=== PATIENT | male | born 1960 | race Caucasian/White ===

== ENCOUNTER 2022-07-24 03:04 | Day surgery (SDC) | payer BC, SELFPAY ==
[2022-07-14 10:49] VITALS: BMI 32.1
[2022-07-24 07:41] VITALS: BP 114/93; PULSE 85; RESP 20; TEMP 36.4; O2SAT 100
[2022-07-24] MEDS: LACTATED RINGERS 1,000 ML 150 ML IV CONT (07:47)
--- NOTE | 2022-07-24 08:15 | WPDANESEPPF ---
Anes - Initial Pre Proc Eval Procedure: Operation Date: 07/24/22 08:45 Proposed Procedures p Screening Colonoscopy - Timothy Mcclellan MD Date/Time: 07/24/22 08:15 Surgeon: Timothy Mcclellan MD Pre Op Diagnosis: Neoplasm Screening, Hx of Colon Polyps Patient Data Age: 62 Gender: M Height: 1.88 m Weight: 110.8 kg Last Vital Signs Temp 36.4 C 07/24/22 07:41 Pulse 85 07/24/22 07:41 Resp 20 07/24/22 07:41 BP 114/93 H 07/24/22 07:41 Pulse Ox 100 07/24/22 07:41 O2 Del Method Room Air 07/24/22 07:41 Allergies Allergy/AdvReac Type Severity Reaction Status Date / Time No Known Allergies Allergy Verified 07/24/22 07:40 Home Medications Medication Instructions Recorded Confirmed Type metoprolol succinate 25 mg 25 mg PO DAILY #90 tabs 02/03/22 07/24/22 Rx tablet,extended release 24 hr benazepril 10 mg tablet 10 mg PO DAILY #30 tabs 07/14/22 07/24/22 Rx hydrochlorothiazide 25 mg tablet 25 mg PO DAILY 07/14/22 07/24/22 History omeprazole 40 mg capsule,delayed 40 mg PO HS PRN REFLUX 07/14/22 07/24/22 History release Patient hx anesthesia problems: none Family hx anesthesia problems: none Results Review: All pre-operative results and documents have been reviewed as part of the pre-operative evaluation. [facility] Past Medical History Medical History (Updated 03/23/22 @ 16:32 by Benito Pierce MD) BMI 31.0-31.9,adult BMI 33.0-33.9,adult Colon polyp Dyspepsia Elevated lipids Hypertension Knee osteoarthritis Surgical History Surgical History H/O shoulder surgery History of colon surgery Family History Family History Other Malignant neoplasm of prostate Social History Social History Smoking status: Never smoker Alcohol intake: current Drinks per week: 12 Alcohol use details: BEERS Substance use: never Substance use type: does not use Living arrangements: with family Spiritual care concerns: No Anes - Eval Final PreProcedure Day of Procedure 07/24/22 08:15 Patient weight: obese Heart: regular rate and rhythm Lungs: clear to auscultation and normal air movement Airway: Mallampati scale class II Neurological: alert and oriented Last oral intake: >/= 8 hours ASA classification: III Emergent: no Anesthetic plan: proceed Anesthesia type and monitoring: general GIVS Results Review: All pre-operative results and documents have been reviewed as part of the pre-operative evaluation. Informed Consent: The patient's anesthetic plan and its attendant risks and benefits were discussed with the patient/family/POA. Questions were solicited and answers provided to the satisfaction of the patient/family/POA.
--- NOTE | 2022-07-24 08:29 | PM.HPGS ---
History of Present Illness History of Present Illness Consent: Risks, benefits, and alternatives have been discussed and questions answered. Patient agrees to proceed with procedure. Chief complaint: Neoplasm Screening, Hx of Colon Polyps Narrative: Saul Liu is a 62 year old male with last colonoscopy about 8 years ago, had partial colectomy due to benign polyp about 30 years ago Review of Systems Constitutional: Constitutional: Denies headache(s) and Denies weakness Eyes: Eyes: Denies blurry vision ENT: Reports Normal hearing present, Denies headache(s) and Denies neck pain Cardiovascular: Cardiovascular: Denies chest pain and Denies dyspnea Respiratory: Respiratory: Denies dyspnea Gastrointestinal: Gastrointestinal: Reports no additional gastrointestinal complaints Genitourinary: Genitourinary: Denies dysuria Musculoskeletal: Musculoskeletal: Denies neck pain Integumentary/Breasts: Skin/Breast: Denies dry skin Neurologic: Reports Normal hearing present, Denies headache(s) and Denies weakness Psychiatric: Psychiatric: Denies anxiety Endocrine: Endocrine: Denies change in body appearance Hematologic/Lymphatic: Hematologic/Lymphatic: Denies easy bleeding Allergic/Immunologic: Allergic/Immunologic: Denies urticaria PMFSH Past Medical History Medical History (Updated 03/23/22 @ 16:32 by Benito Pierce MD) BMI 31.0-31.9,adult BMI 33.0-33.9,adult Colon polyp Dyspepsia Elevated lipids Hypertension Knee osteoarthritis Surgical History Surgical History H/O shoulder surgery History of colon surgery Family History Family History Other Malignant neoplasm of prostate Social History Social History Smoking status: Never smoker Alcohol intake: current Drinks per week: 12 Alcohol use details: BEERS Substance use: never Substance use type: does not use Living arrangements: with family Spiritual care concerns: No Meds Home Medications and Allergies Home Medications Medication Instructions Recorded Confirmed Type metoprolol succinate 25 mg 25 mg PO DAILY #90 tabs 02/03/22 07/24/22 Rx tablet,extended release 24 hr benazepril 10 mg tablet 10 mg PO DAILY #30 tabs 07/14/22 07/24/22 Rx hydrochlorothiazide 25 mg tablet 25 mg PO DAILY 07/14/22 07/24/22 History omeprazole 40 mg capsule,delayed 40 mg PO HS PRN REFLUX 07/14/22 07/24/22 History release Allergies Allergy/AdvReac Type Severity Reaction Status Date / Time No Known Allergies Allergy Verified 07/24/22 07:40 Vital Signs Vital Signs - 24 hr 07/24/22 07:41 Temperature 97.6 F Pulse Rate 85 Respiratory Rate 20 Blood Pressure 114/93 H Pulse Oximetry 100 Oxygen Delivery Room Air Exam Const: General: comfortable and no acute distress HENMT: Face/Nose/Sinus: Normal nares present Eyes: General: appearance normal, both eyes and all related structures Neck: Neck: no JVD Resp: Auscultation: clear to auscultation bilaterally Cardio: Rate: regular rate Rhythm: regular rhythm GI: Inspection: non-distended GI Palp: Yes Soft to palpation Skin: General skin exam: normal color Neuro: General: gait normal Speech: normal speech Extrem: General: normal to inspection Psych: Mental Status: mental status grossly normal Assessment and Plan Assessment and plan (1) Colon polyp: Qualifiers: Colon polyp type: unspecified Colon location: unspecified part of colon Qualified Code(s): K63.5 - Polyp of colon Code(s): K63.5 - Polyp of colon Status: Acute Assessment and Plan: colonoscopy
[2022-07-24 08:54] VITALS: BP 117/62; PULSE 70; RESP 18; O2SAT 97
[2022-07-24 09:04] VITALS: BP 136/78; PULSE 67; RESP 18; O2SAT 99
[2022-07-24 09:14] VITALS: BP 121/83; PULSE 70; RESP 18; O2SAT 100
== END 2022-07-24 09:18 | disposition home or self-care (01) ==
PROVIDERS: PCP Family Medicine; Visit Provider Internal Medicine Gastroenterology
PROC: 0DJD8ZZ Inspection of Lower Intestinal Tract, Via Natural or Artificial Opening Endoscopic (ICD-10-PCS; CPT 45378; principal; 2022-07-24 08:45)
DX: Z12.11 Encounter for screening for malignant neoplasm of colon (principal); D12.0 Benign neoplasm of cecum; K57.30 Diverticulosis of large intestine without perforation or abscess without bleeding; K64.8 Other hemorrhoids; I10 Essential (primary) hypertension; E66.9 Obesity, unspecified; Z68.31 Body mass index [BMI] 31.0-31.9, adult; Z90.49 Acquired absence of other specified parts of digestive tract
CPT/HCPCS: 45380; 88305; J2001; J2704; J7120

== ENCOUNTER 2023-05-25 09:15 | Outpatient (RCR) | payer BC, MEDICARE, SELFPAY ==
--- NOTE | 2023-04-26 16:21 | OPREHPOC ---
Outpatient Therapy Plan of Care This is a Multidisciplinary Plan of Care that may contain components documented by all disciplines (PT, OT, and ST.) PT Problem 1 PT Problem #1 Knowledge Deficit PT Goal 1 Goal 1* indep with HEP PT Problem 2 PT Problem #2 Pain PT Goal 1 Goal 1* pt report pain 5/10 at worst 2* pt report walking/standing tolerance of 15 minutes PT Problem 3 PT Problem #3 Impaired Strength PT Goal 1 Goal 1* single leg standing L x 10 seconds 2* standing bilateral PF x 20 reps with clearing heel ~ 1& 1/2 from floor
--- NOTE | 2023-04-26 16:22 | PTOPEVAL1 ---
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 increase pain: walk/stand 5-10 minutes decrease pain: sit down, no using heat or ice-- instruct on PRN use sometimes knee swells; Assessment PT Clinical Summary Flaquito has the diagnosis of L patella femoral pain. His medical history includes: back pain, bilateral knee arthritis, L ankle fracture- nonsurgical, L knee bakers' cyst, R foot pain. Pain is increased with standing and walking 5 minutes. 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 With the evaluation, he has good ROM and strength of his L hip, knee and ankle, without pain during active motions; supine strength is good, standing ankle strength and single leg standing is decreased; standing posture is poor with L ankle inversion, has lateral tracking and positioning of his patella. Discussed with pt that he may need to see an ortho dr for his L ankle and knee. Skilled PT services are indicated for modalities to decrease pain, therapeutic exercises to increase ankle and knee strength and positioning, with education for home ex
--- NOTE | 2023-05-25 09:48 | PTOPDC ---
Assessment and note entered by Angelica Clarke, PT Discharge Information Assessment Status Discharge Diagnosis L patella femoral pain Onset December 2022 Subjective Information knee is better, less pain; knee is stronger; is able to be up on his feet about 1 & 1/2 hours then more pain;L ankle gives him trouble; is ready to be finished with therapy; Reported Pain Level Pain Score Self Report Additional Pain Score Comments pain range of 0-1/10 in past week; increase with mowing his yard, basement stairs; decrease pain with stim, have been doing the exercises at home Assessment PT Clinical Summary Flaquito has received 5 PT sessions. Compared to the initial evaluation: pain at worst has decreased from 8 to 2/10; standing/walking time reported increased from 5 to 90 min; increase strength with single leg standing and bilateral standing PF; education for HEP and positioning of knee has been completed. Electrical stim has decreased his pain--discussed home unit for pain control. The goals were achieved, except single leg standing time. He continues to have L ankle pain, which limits his mobility and L LE standing/activity tolerance. Discharge from PT services. He is to continue with his HEP. Plan of Care PT Services Indicated No
== END 2023-05-25 10:46 | disposition home or self-care (01) ==
LOC: ANHPT 09:15
PROVIDERS: PCP Family Medicine; Visit Provider Family Medicine
DX: M22.2X2 Patellofemoral disorders, left knee (principal)
CPT/HCPCS: 97014; 97110; 97112; 97161; 97530; G0283

== ENCOUNTER 2023-12-21 18:51 | Emergency (ER) | payer BC, SELFPAY ==
--- NOTE | 2023-12-21 18:56 | ED.WOUNDLAC ---
HPI - Wound/Laceration General Chief Complaint: Wound/Laceration Stated Complaint: cut index finger left hand Time Seen by Provider: 12/21/23 18:55 Source: patient Mode of arrival: ambulatory Limitations: no limitations History of Present Illness HPI narrative: Saul is a 63-year-old male patient presenting to the clinic today with complaints of a cut to his left index finger that occurred just prior to arrival. Tetanus shot is unknown. Bleeding is controlled. States he cut it when opening a can of food. Related Data Allergies Allergy/AdvReac Type Severity Reaction Status Date / Time No Known Allergies Allergy Verified 10/11/23 16:12 Review of Systems Review of Systems: Pertinent positives per HPI. Patient denies any fever, chills, rash, headache, visual changes, dizziness, cough, runny nose, sore throat, shortness of breath, chest pain, palpitations, nausea, vomiting, diarrhea, constipation, abdominal pain, or any urinary issues. [facility] Past Medical History Medical History Adult BMI 32.0-32.9 kg/sq m BMI 31.0-31.9,adult BMI 33.0-33.9,adult Colon polyp Dyspepsia Elevated lipids Hypertension Knee osteoarthritis Osteoarthritis Patellofemoral syndrome, left Surgical History Surgical History H/O shoulder surgery History of colon surgery Family History Family History Father Malignant neoplasm of prostate Mother No problems noted. 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 There is no relevant family history pertinent to the patient complaint. Exam Narrative: General: Well-developed, well nourished, in no apparent distress Head: Normocephalic, atraumatic. Cardio: Regular rate and rhythm, s1 and s2 normal, no murmur appreciated. Resp: Clear to auscultation bilaterally, no rhonchi, rales, wheezing or rubs. Integumentary: [place], warm, and dry, 2.5 cm laceration to the medial aspect of the left index finger. Course Course Emergency Course: Portions of this record may have been created with voice recognition software. Level of Care: Express Care Visit Vital Signs Vital signs: Vital Signs Temperature 36.7 C 12/21/23 18:57 Pulse Rate 76 12/21/23 18:57 Respiratory Rate 16 12/21/23 18:57 Blood Pressure 138/83 12/21/23 18:57 Pulse Oximetry 96 12/21/23 18:57 Oxygen Delivery Room Air 12/21/23 18:57 Temperature 36.7 C 12/21/23 18:57 Pulse Rate 76 12/21/23 18:57 Respiratory Rate 16 12/21/23 18:57 Blood Pressure 138/83 12/21/23 18:57 Pulse Oximetry 96 12/21/23 18:57 Oxygen Delivery Room Air 12/21/23 18:57 Vital signs reviewed Procedures Laceration Laceration 1: Date: 12/21/23 Site: hand (Index finger left hand) Side (If applicable): left Description: linear Depth: simple, single layer Local Anesthetic: lidocaine 1%
[2023-12-21 18:57] VITALS: BP 138/83; PULSE 76; RESP 16; TEMP 36.7; O2SAT 96
[2023-12-21] MEDS: TETANUS,DIPHTHERIA,AC PERTUSSIS ADULT (0.5 ML) BOOSTRIX IM (19:08)
[2023-12-21] MEDS: LIDOCAINE HCL 1% LOCAL INJ 2 ML AMPUL 4 ML INFILTRATE (19:08)
== END 2023-12-21 19:45 | disposition home or self-care (01) ==
PROVIDERS: Emergency Provider Nurse Practitioner Family; PCP Family Medicine
DX: S61.211A Laceration without foreign body of left index finger without damage to nail, initial encounter (principal); W45.8XXA Other foreign body or object entering through skin, initial encounter; Z23 Encounter for immunization; I10 Essential (primary) hypertension; M19.90 Unspecified osteoarthritis, unspecified site
CPT/HCPCS: 12001; 90471; 90715; 99213; G0463

== ENCOUNTER 2023-12-29 17:04 | Emergency (ER) | payer BC, SELFPAY ==
[2023-12-29 17:10] VITALS: BP 152/82; PULSE 83; RESP 16; TEMP 37.1; O2SAT 99
--- NOTE | 2023-12-29 17:20 | ED.SKABFB ---
HPI - Skin/Abscess/Foreign Bdy General Chief complaint: Skin/Abscess/Foreign Body Stated complaint: suture removal Time Seen by Provider: 12/29/23 17:15 Source: patient, RN notes reviewed and old records reviewed Mode of arrival: ambulatory Limitations: no limitations History of Present Illness HPI narrative: Patient presents today requesting suture removal from the left 2nd finger. Seven sutures were placed at [facility] on 12/21/2023 after cutting his finger on the lid of a can at home. Denies any difficulties with the sutures since placement. Related Data Allergies Allergy/AdvReac Type Severity Reaction Status Date / Time No Known Allergies Allergy Verified 12/29/23 17:09 Review of Systems Review of Systems: CONSTITUTIONAL: Denies body aches, fever, chills, or sweats. EYES: Denies visual changes, redness, or discharge. ENT: Denies rhinorrhea, congestion, sore throat, or otalgia. CARDIOVASCULAR: Denies chest pain, palpitations, or edema. RESPIRATORY: Denies cough or dyspnea. GASTROINTESTINAL: Denies abdominal pain, nausea, vomiting, or diarrhea. GENITOURINARY: Denies dysuria or hematuria. SKIN: Denies rash, itching. + sutures to left 2nd finger MUSCULOSKELETAL: Denies back pain, joint pain, or myalgia. NEUROLOGIC: Denies headache, numbness, tingling, or weakness. PSYCH: Denies depression or anxiety. [facility] Past Medical History Medical History Adult BMI 32.0-32.9 kg/sq m BMI 31.0-31.9,adult BMI 33.0-33.9,adult Colon polyp Dyspepsia Elevated lipids Hypertension Knee osteoarthritis Osteoarthritis Patellofemoral syndrome, left Surgical History Surgical History H/O shoulder surgery History of colon surgery Family History Family History Father Malignant neoplasm of prostate Mother No problems noted. 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 Please see nursing chart for further information. There is no relevant family history pertinent to the presenting complaint Exam Narrative: GENERAL: Well-appearing, well-nourished, and in no acute distress. HEAD: Normocephalic, atraumatic. EYES: EOMI. No redness or drainage. Conjunctivae normal. ENT: Mucous membranes pink and moist. NECK: Normal AROM. CHEST: No respiratory distress. EXTREMITIES: Left 2nd finger: 7 intact sutures noted. No surrounding erythema, edema, ecchymosis, or drainage. SKIN: Warm, dry, no rash. Capillary refill normal. Normal skin turgor. NEURO: No focal deficits. Alert and oriented x3. Gait steady. PSYCH: Normal affect. No signs of depression or anxiety. Course Course Level of Care: Express Care Visit Vital Signs Vital signs: Vital Signs Temperature 98.8 F 12/29/23 17:10 Pulse Rate 83 12/29/23 17:10 Respiratory Rate 16 12/29/23 17:10 Blood Pressure 152/82 H 12/29/23 17:10 Pulse Oximetr
== END 2023-12-29 17:23 | disposition home or self-care (01) ==
PROVIDERS: Emergency Provider Nurse Practitioner
DX: S61.211D Laceration without foreign body of left index finger without damage to nail, subsequent encounter (principal); W26.8XXD Contact with other sharp object(s), not elsewhere classified, subsequent encounter; I10 Essential (primary) hypertension; M19.90 Unspecified osteoarthritis, unspecified site
CPT/HCPCS: 99211; G0463